=== PATIENT | female | born 1940 | race Caucasian/White ===

== ENCOUNTER 2020-06-06 21:44 | Inpatient (IN) | payer OTHER ==
[2020-06-06] MEDS ORDERED: cefTRIAXone SODIUM 1 GM in SODIUM CHL 0.9% 50ML MIN-BAG+ 50 ML IVPB ONE (22:03)
[2020-06-06] MEDS ORDERED: DEXAMETHASONE INJ 4 MG/ML VIAL IV ONE (22:03)
[2020-06-06] MEDS ORDERED: REMDESIVIR 200 MG in SODIUM CHLORIDE 0.9% 250ML 250 ML IVPB ONE (22:03)
[2020-06-06] MEDS ORDERED: IPRATROPIUM/ALBUTEROL 3 ML VIAL NEB ONE (22:05)
--- NOTE | 2020-06-06 22:48 | CT ---
EXAM DESCRIPTION: CT of the head without contrast CLINICAL HISTORY: ams on eliquis COMPARISON: None available TECHNIQUE: Axial CT of the head obtained from the skull apex to the skull base without contrast. Motion artifact on all imaging. FINDINGS: No acute intracranial hemorrhage identified. No mass, mass effect, shift of the midline, abnormal extra-axial fluid collection or CT evidence of acute ischemic change identified. The ventricular system and sulcal spaces are mildly enlarged compatible with mild cerebral atrophy. Scattered areas of hypodensity throughout the supratentorial white matter are nonspecific and may be related to chronic small vessel ischemic change. Focal area of encephalomalacia in the right occipital lobe compatible with remote infarction. The visualized paranasal sinuses and mastoid air cells are well aerated. No skull fracture identified. Visualized orbits and globes are unremarkable. Atherosclerotic calcification of the intracranial internal carotid arteries. IMPRESSION: 1. No acute intracranial abnormality by CT criteria. This exam was performed according to our departmental dose-optimization program, which includes automated exposure control, adjustment of the mA and/or kV according to patient size and/or use of iterative reconstruction technique. Electronically signed by: Gerald Moe 06/06/2020 10:46 PM [facility]
[2020-06-06] MEDS ORDERED: REMDESIVIR IV 100 MG VIAL ONE (22:57)
[2020-06-06] MEDS ORDERED: diphenhydrAMINE HCL 50 MG/ML VIAL IV ONE (22:59)
--- NOTE | 2020-06-06 23:10 | ED.PDOC ---
History of Present Illness - General Chief Complaint: Respiratory Problem Stated Complaint: COVD+, wheezing, agitation, altered mental status Time Seen by Provider: 06/06/20 21:53 Source: patient Exam Limitations: no limitations - History of Present Illness Initial Comments: The patient is an 80-year-old female presented emergency room from the only hospital secondary to coronavirus pneumonia. The patient does have significant delirium. She is agitated. She has coarse breath sounds. She does have advanced COPD. She does require oxygen for hypoxia. Pupils are dilated, likely due to breathing treatment at previous hospital. The patient is coronavirus positive. She does move all extremities. She does have some bruising to the extremities. She does have known atrial fibrillation and congestive heart failure. The patient is very thin and frail. She did receive Ativan in route secondary to agitation. No medication allergies are listed on her transfer paperwork and no contacts are available upon arrival for further information. Therefore the patient was started on her routine coronavirus admission medications including azithromycin, Rocephin, dexamethasone and remdesivir along with breathing treatments for her COPD. About an hour after arrival, the patient's family picked up the telephone. They report that she has a allergy to cephalosporins i.e. specifically Keflex. We have seen no reaction to this point to the Rocephin however she did receive steroids prior. She is receiving Benadryl as well, as much to help prevent any reaction and has developed the patient sleep. Additional information obtained from the family member is that the patient has not slept in the last 3 days. She has had episodes of sustained insomnia in the past followed by episodes of confusion. Patient has severe anxiety and depression and based on this information she very well may have undiagnosed bipolar disorder. Family members deny significant alcohol or drug use. The patient does smoke and have COPD. She does take Eliquis as a blood thinner. She also takes Valium on an as-needed basis at 5 mg. Timing/Duration: other - Confusion for the last 12 hours anyway. Severity: severe Allergies/Adverse Reactions: Allergies Cephalexin Allergy (Verified 06/06/20 22:23) Pineapple Allergy (Verified 06/06/20 22:23) Home Medications: Ambulatory Orders Apixaban [Eliquis] 5 mg PO BID 06/06/20 Buspirone HCl [Buspirone Hydrochloride] 5 mg PO BID 06/06/20 Diltiazem HCl 60 mg PO BID 06/06/20 Ipratropium/Albuterol [Duoneb] 3 ml NEB QID 06/06/20 Lisinopril 20 mg PO DAILY 06/06/20 Montelukast [Singulair] 10 mg PO DAILY 06/06/20 Prednisone 5 mg PO DAILY 06/06/20 Sodium Chloride 1 gm PO BID 06/06/20 Spironolactone 25 mg PO DAILY 06/06/20 Review of Systems - Review of Systems Review of Systems: 06/06/20 23:10 The patient is unable to give a review of systems. Past Medical History (General) - Patient Medical History Hx of COPD: Yes Hx Congestive Heart Failure: Yes Hx Hypertension: Yes Hx Cancer: Yes - non-hodgkin's, 12yrs ago Surgical History: appendectomy - Vaccination History Hx Tetanus, Diphtheria Vaccination: - unk Hx Influenza Vaccination: Yes - unk Hx Pneumococcal Vaccination: Yes - unk - Social History Hx Tobacco Use: Yes Hx Alcohol Use: - unk Hx Depression: Yes Family Medical History - Family History Mother Family History: Unknown Physical Exam - Physical Exam General Appearance: Emaciated, Frail, Ill Appearing, Other - Agitated and confused Eye Exam: bilateral normal - Pupils are dilated bilaterally. Ears, Nose, Throat: normal pharynx Neck: full range of motion, supple Respiratory: respiratory distress - Mild, accessory muscle use, rales, rhonchi, wheezing Cardiovascular/Chest: normal peripheral pulses, no edema, tachycardia, irregularly irregular Peripheral Pulses: radial,right: 2+, radial,left: 2+ Gastrointestinal/Abdominal: non tender, soft Rectal Exam: deferred Extremity: normal range of motion, no pedal edema, normal capillary refill Neurologic: cvicu rn II-XII nml as tested - As can be tested in an uncooperative exam, no motor/sensory deficits - Better apparent and uncooperative exam, disoriented x 3 Skin Exam: other - Bruising consistent with thin skin and Eliquis Comments: Vital Signs - 24 hr 06/06/20 06/06/20 06/06/20 21:54 22:02 23:01 Temperature 97.3 F L Pulse Rate [ 66 66 97 H left] Respiratory 20 20 20 Rate Blood Pressure 148/94 118/82 [Left Arm] O2 Sat by Pulse 93 L 94 L Oximetry Progress - Progress Progress: 12/22/20 23:28 The patient is a 80-year-old female presented emergency room from an outside emergency room secondary to coronavirus pneumonia, COPD exacerbation and altered mental state that may be more related to bipolar disorder than the hypoxia. The patient is correcting well with 2 L nasal cannula. She has received several breathing treatments. She has been started on a azithromycin, dexamethasone, remdesivir and DuoNeb's as well. She did receive a dose of Rocephin before we were able to find out that she has an allergy to Keflex. So far no evidence of any allergic reaction at this point. She did receive a dose of Benadryl as soon as we found out however. This was partially to help prevent any allergic reaction and partially to help the patient sleep. The patient is very thin and cachectic. She does have very advanced COPD. He also has atrial fibrillation and a history of CHF. She does have a mild lactic acidosis. She has not received 1 L only here secondary to body size and history of CHF. I do not believe she has any significant congestive heart failure exacerbation currently however that will need to be monitored closely. The patient's agitation and delirium are currently being m managed with small doses of Ativan. When she becomes agitated she tries to get out of bed, pull out her IV lines and take off her oxygen. She cannot be reasoned with verbally. She is disoriented. She apparently does take Valium on a frequent basis at a fairly large dose. Admit for continued care. jose costa [phone] - Results/Orders Results/Orders: Chest x-ray from the [facility] showed scattered infiltrates. EKG shows occasional PVCs. Atrial fibrillation at 112 bpm. Mild right axis deviation. Poor R wave progression. No definitive ST segment or T wave changes indicative of acute ischemia. Laboratory Tests 06/06/20 06/06/20 06/06/20 22:22 22:22 22:22 WBC 15.8 H RBC 4.24 Hgb 11.4 L Hct 35.1 L MCV 83.0 MCH 26.9 L MCHC 32.4 L RDW 17.0 H Plt Count 516 H MPV 7.6 Absolute Neuts (auto) 14.90 H Absolute Lymphs (auto) 0.60 L Absolute Monos (auto) 0.30 Absolute Eos (auto) 0.00 Absolute Basos (auto) 0.00 Neutrophils % 94.3 H Lymphocytes % 3.6 L Monocytes % 1.9 L Eosinophils % 0.0 L Basophils % 0.2 PT INR PTT (SP) Fibrinogen D-Dimer, Quantitative Sodium 138 Potassium 5.6 H Chloride 101 Carbon Dioxide 21 Anion Gap 21.6 H BUN 31 H Creatinine 1.54 H BUN/Creatinine Ratio 20.1 H Random Glucose 151 H Serum Osmolality 285.1 Lactic Acid Calcium 8.5 Magnesium 1.9 Ferritin 19.7 Total Bilirubin 0.7 AST 96 H ALT 58 Alkaline Phosphatase 89 Ammonia 10 LD Total 242 H Creatine Kinase 66 CK-MB (CK-2) 7.4 H* CK-MB (CK-2) % Not Reportable Troponin I 0.03 C-Reactive Protein 1.3 H B-Natriuretic Peptide 360.0 H* Serum Total Protein 5.9 L Albumin 3.4 Globulin 2.5 Albumin/Globulin Ratio 1.4 TSH 2.14 06/06/20 06/06/20 22:22 22:22 WBC RBC Hgb Hct MCV MCH MCHC RDW Plt Count MPV Absolute Neuts (auto) Absolute Lymphs (auto) Absolute Monos (auto) Absolute Eos (auto) Absolute Basos (auto) Neutrophils % Lymphocytes % Monocytes % Eosinophils % Basophils % PT 10.6 INR 1.07 PTT (SP) 24.5 Fibrinogen 332 D-Dimer, Quantitative 711.0 H* Sodium Potassium Chloride Carbon Dioxide Anion Gap BUN Creatinine BUN/Creatinine Ratio Random Glucose Serum Osmolality Lactic Acid 3.2 H* Calcium Magnesium Ferritin Total Bilirubin AST ALT Alkaline Phosphatase Ammonia LD Total Creatine Kinase CK-MB (CK-2) CK-MB (CK-2) % Troponin I C-Reactive Protein B-Natriuretic Peptide Serum Total Protein Albumin Globulin Albumin/Globulin Ratio TSH Departure - Departure Clinical Impression: Acute confusional state, Pneumonia due to COVID-19 virus, COPD exacerbation Disposition: Admit Patient Condition: Poor Departure Forms: ED Discharge - Pt. Copy, Patient Portal Self Enrollment Referrals: VIC LADD PA-C [Primary Care Provider] - 1-2 Weeks Home Medications: Ambulatory Orders Apixaban [Eliquis] 5 mg PO BID 06/06/20 Buspirone HCl [Buspirone Hydrochloride] 5 mg PO BID 06/06/20 Diltiazem HCl 60 mg PO BID 06/06/20 Ipratropium/Albuterol [Duoneb] 3 ml NEB QID 06/06/20 Lisinopril 20 mg PO DAILY 06/06/20 Montelukast [Singulair] 10 mg PO DAILY 06/06/20 Prednisone 5 mg PO DAILY 06/06/20 Sodium Chloride 1 gm PO BID 06/06/20 Spironolactone 25 mg PO DAILY 06/06/20 Decision To Admit - Decistion To Admit Decision to Admit Reason: Medical Nature Decision to Admit Date: 06/06/20 Decision to Admit Time: 23:33
--- NOTE | 2020-06-06 23:17 | RAD ---
EXAM DESCRIPTION: Chest,1 View 06/06/2020 11:14 PM INFORMATION ASSURANCE MANAGER CLINICAL HISTORY: 80 years, Female, sob, covid, copd COMPARISON: None. FINDINGS: Single view of the chest was obtained portable. No prior films are available for comparison. There is hyperinflation. The heart is prominent. There is minimal intimal aortic arch calcification. Costophrenic angles are sharp. Minimal reticulonodular changes are noted within the upper lobe, perhaps suggesting minimal bronchial thickening. No areas of consolidation or masses are seen. The rest of the soft tissue and bony structures demonstrate to be unremarkable. IMPRESSION: COPD. CARDIOMEGALY. NO ACUTE CARDIOPULMONARY DISEASE SEEN. Electronically signed by: Christoph Wasserman MD 06/06/2020 11:15 PM INFORMATION ASSURANCE MANAGER
--- NOTE | 2020-06-07 01:27 | HP ---
SUPERVISING PHYSICIAN: Jackson Coughlin MD CHIEF COMPLAINT: Shortness of breath and altered mental status. HISTORY OF PRESENT ILLNESS: This is an 80-year-old female patient who was seen at the [facility]. She tested positive for COVID. She also had altered mental status. She has a significant history of oxygen dependence, chronic obstructive pulmonary disease as well as severe depression, anxiety and undiagnosed bipolar disorder. According to her daughter, she has these bouts of insomnia for 3 to 4 days and increased anxiety and agitation about every 2 to 3 months. The daughter feels like she most likely has some sort of bipolar disorder. She also smokes a pack of cigarettes daily. She was sent from the other facility for evaluation and treatment. In the Emergency Room, her saturations were in the low 90s. With her any exertion or agitation, her saturations drop to 87 to 88%. When she was quiet on oxygen, they were in the low 90s. She did receive several doses of Ativan due to her uncooperativeness as well as trying to pull her oxygen off, trying to pull IVs out and generally combative. She was given Remdesivir, azithromycin, Rocephin, Decadron in the Emergency Room. It was later found after her family answered the phone that she had an unknown allergy to Keflex. There was no adverse or allergic reaction noted after the infusion of the Rocephin although she was given some IV Benadryl prophylactically. Her initial vital signs in the ER were temperature 97.3, heart rate 94 to 110 with blood pressure 148/94, respiratory rate 24, O2 saturation when quiet at 93%. When she was agitated, it was down to 87-88%. Labs were done and her WBCs 15,800, hemoglobin 11.4, hematocrit 35.1. She did have a left shift on differential. D-dimer was 711. Sodium 138, potassium 5.6, chloride 101, carbon dioxide 21, BUN 31, creatinine 1.54, glucose 151, lactic acid 3.2, calcium 8.5, magnesium 1.9, ferritin 19.7, AST 96, LD 242, CK-MB 7.4, C-reactive protein 1.3, BNP 360, ammonia 10. Blood cultures were drawn. Her chest x-ray showed COPD, cardiomegaly and no acute cardiopulmonary disease seen. Her head CT showed no acute intracranial abnormality by CT criteria. She was admitted to the hospital in stable condition. Past medical history and review of systems were difficult to obtain due to the patient's mental status and combativeness. Most information was obtained from her daughter via telephone. PAST MEDICAL HISTORY: 1. Chronic obstructive pulmonary disease. 2. Congestive heart failure of unknown etiology. 3. Hypertension. 4. Atrial fibrillation. 5. Anxiety and depression. 6. Questionable chronic kidney insufficiency as she is on salt tablets routinely. 7. Non-Hodgkin lymphoma approximately 12 years ago. PAST SURGICAL HISTORY: 1. Appendectomy. 2. x2. OUTPATIENT MEDICATIONS: Per the EMR and awaiting verification. ALLERGIES: CEPHALEXIN AND PINEAPPLE. According to her daughter, she does not know what reaction she has to cephalexin. FAMILY HISTORY: Noncontributory. SOCIAL HISTORY: She lives with her daughter and they have home health as well as sitters that sit with her. She lives in [place] although her daughter does live in [place]. She smokes about one pack of cigarettes daily and has for many years. It is unknown whether she uses alcohol or illicit drugs. REVIEW OF SYSTEMS: Unable to be obtained due to the patient's mental status. PHYSICAL EXAMINATION: VITAL SIGNS: Temperature 97.6, heart rate 104, blood pressure 133/66, respiratory rate 16, O2 saturation 95% at rest on 2 liters nasal cannula. GENERAL: This is an 80-year-old cachectic female who frequently gets agitated, but she is slightly sedated now and is calm. HEENT: Pupils are equal and reactive bilaterally. Atraumatic. Oropharynx is clear. NECK: Supple with full range of motion. RESPIRATORY: She is mildly tachypneic, especially when she becomes agitated. Lungs sounds show rales and rhonchi with some expiratory wheezing throughout all lung ayon. CARDIOVASCULAR: Tachycardic rate and irregular rhythm. Atrial fibrillation on the crayon sorting machine feeder. GASTROINTESTINAL: Abdomen is soft, nondistended, nontender. Bowel sounds are positive. NEUROLOGIC: She is uncooperative and will not answer any questions. At this time, she is slightly sedated and calm. SKIN: There is bruising over the entire body with very thin skin. She is on Eliquis routinely. LABORATORY: Followup labs show WBCs 16,200, hemoglobin 10.2, hematocrit 33.3. She continues to have left shift on differential. D-dimer 438. Sodium 142, potassium 5.2, chloride 108, carbon dioxide 22, BUN 32, creatinine 1.55. Lactic acid 1, calcium 7.9, magnesium 2, AST 48, C-reactive protein 1.6. BNP 583. IMPRESSION: 1. COVID-19 pneumonitis with developing pneumonia, most likely community acquired. 2. Sepsis secondary to #1. Her admitting heart rate was in the 100s, respiratory rate 24, lactic acid 3.2, WBCs 15,800 that went up to over 16,000. 3. Chronic obstructive pulmonary disease with acute exacerbation complicated by #1. 4. Congestive heart failure of unknown etiology. BNP 583. There are no signs or symptoms of exacerbation. 5. Acute kidney injury. Her creatinine was 1.54. We have no baseline to compared. 6. Hyperkalemia, most likely due to her renal insufficiency. 7. Altered mental status with confusion. 8. Chronic anxiety and depression with possibly undiagnosed bipolar disorder. 9. Tobacco abuse. 10. Anorexia. 11. Atrial fibrillation on Eliquis. PLAN: The patient has been admitted to the hospital. We will continue the routine COVID medications and testing as well as per COVID protocol. She has been given judicious fluids. At this point, she will be on fluids due to her inability to eat at this time. She will have aggressive pulmonary hygiene including albuterol both p.r.n. and scheduled. I have ordered an echocardiogram. We will monitor her chest x-ray as well as fluid levels. We will also get a Witt catheter and run a urinalysis. Hopefully with all of the antibiotics and fluids, her kidney function will improve and her potassium will come down. I have given her some Haldol for now as well as her Ativan and once her mental status has improved, I will try some Seroquel on her. I will order some supplemental nutritional shakes to her diet once she is able to take oral intake. At this point, she is unable to take her Eliquis, so I put her on some Lovenox and she is on the crayon sorting machine feeder. We will monitor her heart rate. I talked at length with the daughter and the patient's wishes are that she is a full code, as she is at this time. I have held on the Rocephin for now. We may need to restart that, but I will see what her urinalysis shows and start her on some coverage for that if needed. #[id number] MTDD
[2020-06-07] MEDS ORDERED: diphenhydrAMINE HCL 50 MG/ML VIAL IV PRN (02:46)
[2020-06-07] MEDS ORDERED: SODIUM CHLORIDE 0.9% (FLUSH) 10 ML SYG IV PRN (08:12)
[2020-06-07] MEDS ORDERED: ONDANSETRON INJ 4 MG/2 ML VIAL IV PRN (08:12)
[2020-06-07] MEDS ORDERED: predniSONE 5 MG TAB PO SCH (09:00)
[2020-06-07] MEDS ORDERED: SPIRONOLACTONE 25 MG TAB PO SCH (09:00)
[2020-06-07] MEDS ORDERED: MONTELUKAST 10 MG TAB PO SCH (09:00)
[2020-06-07] MEDS ORDERED: APIXABAN 5 MG TAB PO SCH (09:00)
[2020-06-07] MEDS ORDERED: AZITHROMYCIN IV 500 MG VIAL IVPB ONE (09:34)
[2020-06-07] MEDS ORDERED: SODIUM CHLORIDE 0.9% 250ML 250 ML ONE ×2 (09:34→19:40)
[2020-06-07] MEDS: SODIUM CHLORIDE 0.9% (FLUSH) 10 ML SYG IV SCH ×2 (09:47→20:33)
[2020-06-07] MEDS: DEXAMETHASONE INJ 4 MG/ML VIAL IV SCH (09:48)
[2020-06-07] MEDS: AZITHROMYCIN IV 500 MG in SODIUM CHLORIDE 0.9% 250ML 250 ML IVPB SCH (09:48)
[2020-06-07] MEDS: IV SET AND CAP CHANGE INJ INJ SCH (09:48)
[2020-06-07] MEDS ORDERED: HALOPERIDOL LACTATE INJ 5 MG/ML VIAL IM PRN (09:53)
[2020-06-07] MEDS: BIFIDOBACTERIUM INFANTIS 4 MG CAP PO SCH (09:56)
[2020-06-07] MEDS: LISINOPRIL 10 MG TAB PO SCH (09:57)
[2020-06-07] MEDS: diltiaZEM HCL TAB 30 MG TAB PO SCH ×2 (09:57→19:05)
[2020-06-07] MEDS: guaiFENesin ER TAB 600 MG TAB PO SCH ×2 (09:57→19:05)
[2020-06-07] MEDS: busPIRone HCL 5 MG TAB PO SCH ×2 (09:57→19:05)
[2020-06-07] MEDS: NON-FORMULARY MEDICATION 1 EA MIS (Sodium Chloride [Sodium Chloride] 1 GM) PO SCH ×2 (09:58→20:34)
[2020-06-07] MEDS ORDERED: ENOXAPARIN SODIUM 40 MG/0.4 ML SYG SUBCU ONE (11:21)
[2020-06-07] MEDS: ENOXAPARIN SODIUM 40 MG/0.4 ML SYG SUBCU SCH (11:39)
[2020-06-07] MEDS: NICOTINE PATCH 14 MG TD SCH (11:39)
[2020-06-07] MEDS: DEX 5% W/NACL 0.45% 1000ML 1,000 ML IVS PRN (11:40)
[2020-06-07] MEDS: ALBUTEROL INHALER 64 PUFF/8GM INH SCH ×3 (12:40→20:30)
[2020-06-07] MEDS: QUEtiapine FUMARATE 25 MG TAB PO SCH (19:05)
[2020-06-07] MEDS ORDERED: QUEtiapine FUMARATE 25 MG TAB ONE (19:05)
[2020-06-07] MEDS ORDERED: REMDESIVIR IV 100 MG VIAL ONE (19:40)
[2020-06-07] MEDS: REMDESIVIR 100 MG in SODIUM CHLORIDE 0.9% 250ML 250 ML IVPB SCH (20:33)
[2020-06-08] MEDS: DEX 5% W/NACL 0.45% 1000ML 1,000 ML IVS PRN ×2 (00:48→12:27)
[2020-06-08] MEDS: ALBUTEROL INHALER 64 PUFF/8GM INH PRN (00:48)
[2020-06-08] MEDS ORDERED: PANTOPRAZOLE SODIUM IV 40 MG VIAL ONE (05:16)
[2020-06-08] MEDS: PANTOPRAZOLE SODIUM IV 40 MG VIAL IV SCH (05:49)
--- NOTE | 2020-06-08 06:33 | RAD ---
EXAM: XR Chest, 1 View CLINICAL HISTORY: covid TECHNIQUE: Frontal view of the chest. COMPARISON: 06/06/2020 FINDINGS: Lungs: There is stable asymmetric interstitial thickening in the right lung and to a lesser degree in the left apex. Pleural space: No pneumothorax. No pleural effusion. Heart: Normal cardiac size and configuration. Mediastinum: No abnormality noted. Bones/joints: No osseous destruction or sclerosis noted. IMPRESSION: Stable right greater than left interstitial thickening which can be seen with covid pneumonia. Electronically signed by: Kim Coronado MD 06/08/2020 6:31 AM [facility]
[2020-06-08] MEDS: BIFIDOBACTERIUM INFANTIS 4 MG CAP PO SCH (08:07)
[2020-06-08] MEDS: diltiaZEM HCL TAB 30 MG TAB PO SCH ×2 (08:07→20:08)
[2020-06-08] MEDS: guaiFENesin ER TAB 600 MG TAB PO SCH ×2 (08:07→19:44)
[2020-06-08] MEDS: NICOTINE PATCH 14 MG TD SCH (08:07)
[2020-06-08] MEDS: QUEtiapine FUMARATE 25 MG TAB PO SCH ×2 (08:07→19:43)
[2020-06-08] MEDS: LISINOPRIL 10 MG TAB PO SCH (08:07)
[2020-06-08] MEDS: busPIRone HCL 5 MG TAB PO SCH ×2 (08:07→19:43)
[2020-06-08] MEDS: AZITHROMYCIN IV 500 MG in SODIUM CHLORIDE 0.9% 250ML 250 ML IVPB SCH (08:08)
[2020-06-08] MEDS: DEXAMETHASONE INJ 4 MG/ML VIAL IV SCH (08:08)
[2020-06-08] MEDS: ALBUTEROL INHALER 64 PUFF/8GM INH SCH ×4 (08:15→20:30)
[2020-06-08] MEDS: NON-FORMULARY MEDICATION 1 EA MIS (Sodium Chloride [Sodium Chloride] 1 GM) PO SCH ×2 (09:21→21:26)
[2020-06-08] MEDS: SODIUM CHLORIDE 0.9% (FLUSH) 10 ML SYG IV SCH ×2 (09:21→19:44)
[2020-06-08] MEDS: ENOXAPARIN SODIUM 40 MG/0.4 ML SYG SUBCU SCH (11:15)
[2020-06-08] MEDS ORDERED: IPRATROPIUM/ALBUTEROL 3 ML VIAL NEB ONE (12:14)
[2020-06-08] MEDS: FLUMAZENIL 0.1 MG/ML VIAL IV SCH ×5 (14:54→16:03)
[2020-06-08] MEDS: REMDESIVIR 100 MG in SODIUM CHLORIDE 0.9% 250ML 250 ML IVPB SCH (20:08)
[2020-06-08] MEDS ORDERED: QUEtiapine FUMARATE 25 MG TAB ONE (20:16)
[2020-06-08] MEDS ORDERED: QUEtiapine FUMARATE 25 MG TAB PO ONE (20:30)
[2020-06-08] MEDS: IPRATROPIUM/ALBUTEROL 3 ML VIAL NEB SCH (20:30)
[2020-06-09] MEDS: DEX 5% W/NACL 0.45% 1000ML 1,000 ML IVS PRN (00:07)
[2020-06-09] MEDS: ALBUTEROL INHALER 64 PUFF/8GM INH PRN (03:15)
[2020-06-09] MEDS: IPRATROPIUM/ALBUTEROL 3 ML VIAL NEB PRN ×2 (03:15→04:00)
[2020-06-09] MEDS: PANTOPRAZOLE SODIUM IV 40 MG VIAL IV SCH (05:30)
[2020-06-09] MEDS: IPRATROPIUM/ALBUTEROL 3 ML VIAL NEB SCH ×2 (07:45→20:05)
[2020-06-09] MEDS: AZITHROMYCIN IV 500 MG in SODIUM CHLORIDE 0.9% 250ML 250 ML IVPB SCH (07:51)
[2020-06-09] MEDS: busPIRone HCL 5 MG TAB PO SCH ×2 (08:03→20:34)
[2020-06-09] MEDS: BIFIDOBACTERIUM INFANTIS 4 MG CAP PO SCH (08:03)
[2020-06-09] MEDS: DEXAMETHASONE INJ 4 MG/ML VIAL IV SCH (08:03)
[2020-06-09] MEDS: NICOTINE PATCH 14 MG TD SCH (08:03)
[2020-06-09] MEDS: guaiFENesin ER TAB 600 MG TAB PO SCH ×2 (08:03→20:33)
[2020-06-09] MEDS: diltiaZEM HCL TAB 30 MG TAB PO SCH ×2 (08:03→20:34)
[2020-06-09] MEDS: SODIUM CHLORIDE 0.9% (FLUSH) 10 ML SYG IV SCH ×2 (08:04→20:36)
[2020-06-09] MEDS: QUEtiapine FUMARATE 25 MG TAB PO SCH ×2 (08:04→20:34)
[2020-06-09] MEDS: LISINOPRIL 10 MG TAB PO SCH (08:04)
[2020-06-09] MEDS: ALBUTEROL INHALER 64 PUFF/8GM INH SCH ×4 (08:06→20:05)
[2020-06-09] MEDS: NON-FORMULARY MEDICATION 1 EA MIS (Sodium Chloride [Sodium Chloride] 1 GM) PO SCH ×2 (10:23→20:37)
[2020-06-09] MEDS: ENOXAPARIN SODIUM 40 MG/0.4 ML SYG SUBCU SCH (10:24)
--- NOTE | 2020-06-09 13:59 | PN ---
SUPERVISING PHYSICIAN: Ced Paz MD DATE: 06/08/2020 SUBJECTIVE: The patient is waking up more this morning. She was able to get some of her oral medications down and answer some simple questions. She still gets confused at times but I am not sure if that is not far from her baseline. Nursing reports there have been no problems other than she still gets very agitated and takes off her oxygen and pulls at her IV lines. OBJECTIVE: VITAL SIGNS: Temperature 97.8, heart rate 91, blood pressure 102/67, respiratory rate 20, O2 saturation 95% on 1 liter nasal cannula. RESPIRATORY: Diminished at the bases. CARDIOVASCULAR: Regular rate and irregular rhythm. At times she is slightly tachycardic, atrial fibrillation on the monitoring manager. NEUROLOGIC: She is awake, responds to some simple questions but is still very agitated and anxious. LABORATORY: WBCs 16,300, hemoglobin 10.2, hematocrit 33.1. She has a left shift on her differential. D-dimer 253. Electrolytes are within normal limits with exception calcium is low at 7.7. Preliminary blood cultures show no growth after 24 hours. Chest x-ray shows stable right greater than left interstitial thickening which can be seen with Covid pneumonia IMPRESSION: 1. COVID-19 pneumonitis with developing pneumonia, most likely community acquired. 2. Sepsis secondary to #1. Her admitting heart rate was in the 100s, respiratory rate 24, lactic acid 3.2, WBCs 15,800 that went up to over 16,000. 3. Chronic obstructive pulmonary disease with acute exacerbation complicated by #1. 4. Congestive heart failure of unknown etiology. BNP 583. There are no signs or symptoms of exacerbation. 5. Acute kidney injury. Her creatinine was 1.54. We have no baseline to compared. 6. Hyperkalemia, most likely due to her renal insufficiency. 7. Altered mental status with confusion. 8. Chronic anxiety and depression with possibly undiagnosed bipolar disorder. 9. Tobacco abuse. 10. Anorexia. 11. Atrial fibrillation on Eliquis. PLAN: We will continue present supportives care. I will continue with the Seroquel and see if that helps her anxiety. She is routinely on Valium so will continue with Ativan for now. I did order a physical therapy evaluation, although I am not sure how much she gets around at home. Her daughter did say she uses the walker to transfer but does not walk much. Hopefully, she will continue to improve clinically. We will continue with the Covid guidelines and will monitor and treat as needed. #[id number] MTDD
--- NOTE | 2020-06-09 19:22 | PN ---
SUPERVISING PHYSICIAN: Ced Paz MD DATE: 06/09/2020 SUBJECTIVE: The patient continues to be quite anxious and agitated but much improved. Yesterday afternoon she had an episode that she became quite lethargic and she was difficult to arouse. An ABG was performed and she was retaining some C02. She had been given Ativan due to her agitation and anxiety. She was given some Romazicon and she woke up and was much more alert, although still confused. Otherwise, nursing has reported no other issues. OBJECTIVE: VITAL SIGNS: Temperature 98.1, heart rate 101, blood pressure 120/67, respiratory rate 20, O2 saturation 96% on 2.5 liters nasal cannula. RESPIRATORY: Diminished throughout but a few scattered rhonchi. CARDIOVASCULAR: Regular rate and irregular rhythm. NEUROLOGIC: She is agitated and confused. She does answer some simple yes/no questions without issues. LABORATORY: Blood gas prior to the Romazicon with a PC02 of 54, P02 of 158, bicarb 24.1, pH 7.257, oxygen saturation 98%, she was on BiPAP through the night and this morning's ABG showed a PC02 of 50, P02 of 137, bicarb 24.5, ABG 7.3, oxygen saturation 98.6. All other labs and films have been reviewed via the EMR. IMPRESSION: 1. COVID-19 pneumonitis with developing pneumonia, most likely community acquired. 2. Sepsis secondary to #1. Her admitting heart rate was in the 100s, respiratory rate 24, lactic acid 3.2, WBCs 15,800 that went up to over 16,000. 3. Chronic obstructive pulmonary disease with acute exacerbation complicated by #1. 4. Congestive heart failure of unknown etiology. BNP 583. There are no signs or symptoms of exacerbation. 5. Acute kidney injury. Her creatinine was 1.54. We have no baseline to compared. 6. Hyperkalemia, most likely due to her renal insufficiency. 7. Altered mental status with confusion. 8. Chronic anxiety and depression with possibly undiagnosed bipolar disorder. 9. Tobacco abuse. 10. Anorexia. 11. Atrial fibrillation on Eliquis. PLAN: We will continue present supportives care including Covid-19 guidelines, ordered lab and chest x-ray for in the morning. Her Ativan has not been discontinued but nursing is aware to use it very minimally as she is on Valium routinely at home. Will increase her Seroquel at night to 50. Hopefully, she will improve over the next few days where we can discharge her back home. #[id number] [facility]
[2020-06-09] MEDS: REMDESIVIR 100 MG in SODIUM CHLORIDE 0.9% 250ML 250 ML IVPB SCH (20:36)
[2020-06-10] MEDS: DEX 5% W/NACL 0.45% 1000ML 1,000 ML IVS PRN (00:37)
[2020-06-10] MEDS: PANTOPRAZOLE SODIUM IV 40 MG VIAL IV SCH (06:29)
--- NOTE | 2020-06-10 06:54 | RAD ---
PROCEDURE:XR CHEST 1 VIEW HISTORY:covid COMPARISON: June 08, 2020 FINDINGS: The heart appears unremarkable. There is minimal diffuse interstitial thickening seen to be present unchanged from the prior exam. There is no effusion or pneumothorax. There is no alveolar consolidation. There are no acute bony or soft tissue abnormalities. IMPRESSION: Stable chest x-ray. Electronically signed by: Eric Frias MD 06/10/2020 6:52 AM [facility]
[2020-06-10] MEDS: IPRATROPIUM/ALBUTEROL 3 ML VIAL NEB SCH ×3 (08:30→20:12)
[2020-06-10] MEDS: ALBUTEROL INHALER 64 PUFF/8GM INH SCH ×4 (08:30→20:12)
[2020-06-10] MEDS: AZITHROMYCIN IV 500 MG in SODIUM CHLORIDE 0.9% 250ML 250 ML IVPB SCH (09:09)
[2020-06-10] MEDS: QUEtiapine FUMARATE 25 MG TAB PO SCH ×2 (09:25→21:13)
[2020-06-10] MEDS: IV SET AND CAP CHANGE INJ INJ SCH (09:26)
[2020-06-10] MEDS: BIFIDOBACTERIUM INFANTIS 4 MG CAP PO SCH (09:26)
[2020-06-10] MEDS: SODIUM CHLORIDE 0.9% (FLUSH) 10 ML SYG IV SCH ×2 (09:26→21:13)
[2020-06-10] MEDS: diltiaZEM HCL TAB 30 MG TAB PO SCH ×2 (09:27→21:12)
[2020-06-10] MEDS: busPIRone HCL 5 MG TAB PO SCH ×2 (09:27→21:12)
[2020-06-10] MEDS: DEXAMETHASONE INJ 4 MG/ML VIAL IV SCH (09:27)
[2020-06-10] MEDS: guaiFENesin ER TAB 600 MG TAB PO SCH ×2 (09:28→21:12)
[2020-06-10] MEDS: NICOTINE PATCH 14 MG TD SCH (09:28)
[2020-06-10] MEDS: ENOXAPARIN SODIUM 40 MG/0.4 ML SYG SUBCU SCH (09:29)
[2020-06-10] MEDS: NON-FORMULARY MEDICATION 1 EA MIS (Sodium Chloride [Sodium Chloride] 1 GM) PO SCH ×2 (09:29→21:13)
[2020-06-10] MEDS: LISINOPRIL 10 MG TAB PO SCH (09:29)
[2020-06-10] MEDS: MORPHINE SULFATE INJ 10 MG/ML VIAL IV PRN ×2 (12:47→16:43)
[2020-06-10] MEDS ORDERED: levoFLOXacin 500MG IV 500 MG in PREMIX BAG 1 BAG IVPB ONE (13:00)
[2020-06-10] MEDS: BUDESONIDE NEBS 0.5 MG/2 ML INH NEB SCH ×2 (13:30→20:12)
[2020-06-10] MEDS: IPRATROPIUM/ALBUTEROL 3 ML VIAL NEB PRN (13:30)
[2020-06-10] MEDS ORDERED: levoFLOXacin 500MG IV 100 ML IVPB ONE (15:15)
--- NOTE | 2020-06-10 17:07 | PN ---
SUPERVISING PHYSICIAN: Ced Paz MD DATE: 06/10/2020 SUBJECTIVE: The patient is showing some signs of increasing need for oxygen, report was she was able to get off BiPAP yesterday during the day but was on it all night last night and apparently is having little issues with getting off of it this morning. Her daughter did come visit with her. We discussed her DNR status which she is going to talk to her brother at this point. Again, I reemphasized that the patient is endstage chronic obstructive pulmonary disease and we will further assess her DNR status as soon as that is available. The patient is requiring some Ativan and morphine for comfort and agitation but she does well with that combination. OBJECTIVE: VITAL SIGNS: Oxygen saturation showing 99% on BiPAP at 30%. She is able to get off BiPAP for brief periods, mostly been around 99% at rest but becomes quite agitated and actually while I was in there she was hollering for help once she got off of BiPAP. Her temperature 98, pulse 101, respirations 18. GENERAL: The patient looks to be resting comfortably but is getting slightly agitated, actually coming off BiPAP. She is obviously confused but her daughter says that is her baseline level at times. CHEST: Lung sounds remain diminished throughout with some intermittent rhonchi and some obvious expiratory wheezing. CARDIOVASCULAR: Slightly irregular rate and rhythm. ABDOMEN: Soft, no obvious tenderness noted on palpation. Bowel sounds are positive. EXTREMITIES: No cyanosis, clubbing. NEUROLOGIC: She remains agitated and confused but will rest comfortably at times with assistance of Ativan and morphine. LABORATORY: White count 16,300, hemoglobin 10.4, hematocrit 33.1, platelet count 444,000. Differential does show a left shift. Coagulation studies today show PT normal as well as fibrinogen and D-dimer, was at 253 as compared to admission of 711. Chemistries showing normal electrolytes. Creatinine has normalized to 1.27, magnesium normal at 1.9, calcium 7.7 corrected to 8.0 with albumin level of 3.0. Liver functions all within normal limits. MICROBIOLOGY: Blood cultures remain negative at 3 days. RADIOLOGY: Chest x-ray per radiology interpretation this morning shows stable chest. IMPRESSION: 1. COVID-19 pneumonitis with developing pneumonia, most likely community acquired. 2. Sepsis secondary to #1. Her admitting heart rate was in the 100s, respiratory rate 24, lactic acid 3.2, WBCs 15,800 that went up to over 16,000. 3. Chronic obstructive pulmonary disease with acute exacerbation complicated by #1. 4. Congestive heart failure of unknown etiology. BNP 583. There are no signs or symptoms of exacerbation. 5. Acute kidney injury. Her creatinine was 1.54. We have no baseline to compared. 6. Hyperkalemia, most likely due to her renal insufficiency. 7. Altered mental status with confusion. 8. Chronic anxiety and depression with possibly undiagnosed bipolar disorder. 9. Tobacco abuse. 10. Anorexia. 11. Atrial fibrillation on Eliquis. PLAN: We will continue with current plan of care at this point with some modification. I will go ahead and put her on some Levaquin given the fact that she is having a persistent high white count, I know she is on Decadron but she certainly has endstage chronic obstructive pulmonary disease. We will work to titrate her off BiPAP as possible. I have also requested that we go ahead and put her on Pulmicort 1 mg b.i.d. as well as nebulizer treatments utilizing BiPAP. I have again discussed at length the patient's prognosis and DNR status with the daughter who is going to talk with her brother and they will come to a conclusion and let us know as soon as possible. I did reemphasize that she is endstage COPD and will likely not survive on a vent, if she does she will likely not ever come off for any length of time. I even discussed the possibility that she may benefit at some point in the near future going to hospice care given her advanced chronic obstructive pulmonary disease. We will utilize morphine and Ativan as needed to help with agitation and to keep her comfortable. I went ahead and added Lovenox, again for the worsening white count, giving 500 mg and will dose it renally for 250. We will continue with dose of azithromycin to complete the 5-day course. Will change her Decadron to Solu-Medrol 40 every 6 hours as I think this is more appropriate to her advanced COPD. She continues on Remdesivir and she is on Seroquel as well. She still requires Witt due to requiring NIV with Bipap and her inability to ambulate to bedside commode. When she is able to tolerate transferring to bedside commode without and obvious distress the Witt will be removed.I would anticipate her length of stay to be at least a couple more days if not more and I think she will probably benefit form hospice at some point if she is able to go home but again will await her DNR status. She remains a full code at this point. I will visit with the family again tomorrow. Until we can transition patient to outpatient management, we will continue to monitor and treat as needed. #[id number] [facility]
[2020-06-10] MEDS: REMDESIVIR 100 MG in SODIUM CHLORIDE 0.9% 250ML 250 ML IVPB SCH (20:59)
[2020-06-10] MEDS: methylPREDNISolone SODIUM SUC 40 MG/ML VIAL IV SCH ×2 (21:00→23:51)
[2020-06-11] MEDS: methylPREDNISolone SODIUM SUC 40 MG/ML VIAL IV SCH ×3 (05:49→17:41)
[2020-06-11] MEDS: PANTOPRAZOLE SODIUM IV 40 MG VIAL IV SCH (05:49)
[2020-06-11] MEDS ORDERED: IPRATROPIUM/ALBUTEROL 3 ML VIAL NEB ONE ×2 (08:56→21:06)
[2020-06-11] MEDS ORDERED: BUDESONIDE NEBS 0.5 MG/2 ML INH NEB ONE ×2 (08:56→21:05)
[2020-06-11] MEDS: AZITHROMYCIN IV 500 MG in SODIUM CHLORIDE 0.9% 250ML 250 ML IVPB SCH (09:00)
[2020-06-11] MEDS: IPRATROPIUM/ALBUTEROL 3 ML VIAL NEB SCH ×3 (09:30→21:15)
[2020-06-11] MEDS: BUDESONIDE NEBS 0.5 MG/2 ML INH NEB SCH ×2 (09:30→21:15)
[2020-06-11] MEDS: ALBUTEROL INHALER 64 PUFF/8GM INH SCH ×3 (10:35→20:15)
[2020-06-11] MEDS: BIFIDOBACTERIUM INFANTIS 4 MG CAP PO SCH (11:09)
[2020-06-11] MEDS: busPIRone HCL 5 MG TAB PO SCH ×2 (11:10→20:26)
[2020-06-11] MEDS: diltiaZEM HCL TAB 30 MG TAB PO SCH ×2 (12:22→20:26)
[2020-06-11] MEDS: LISINOPRIL 10 MG TAB PO SCH (12:22)
[2020-06-11] MEDS: guaiFENesin ER TAB 600 MG TAB PO SCH ×2 (12:22→20:25)
[2020-06-11] MEDS: SODIUM CHLORIDE 0.9% (FLUSH) 10 ML SYG IV SCH ×2 (12:23→20:27)
[2020-06-11] MEDS ORDERED: QUEtiapine FUMARATE 25 MG TAB ONE ×2 (12:26→19:52)
[2020-06-11] MEDS ORDERED: NICOTINE PATCH 14 MG TD ONE (12:26)
[2020-06-11] MEDS: QUEtiapine FUMARATE 25 MG TAB PO SCH ×2 (12:52→20:26)
[2020-06-11] MEDS: ENOXAPARIN SODIUM 40 MG/0.4 ML SYG SUBCU SCH (12:52)
[2020-06-11] MEDS: NICOTINE PATCH 14 MG TD SCH (12:52)
[2020-06-11] MEDS ORDERED: levoFLOXacin 250MG IV 50 ML IVPB ONE (13:12)
[2020-06-11] MEDS ORDERED: methylPREDNISolone SODIUM SUC 40 MG/ML VIAL ONE ×2 (13:12→17:29)
[2020-06-11] MEDS: levoFLOXacin 250MG IV 250 MG in PREMIX BAG 1 BAG IVPB SCH (13:47)
[2020-06-11] MEDS: NON-FORMULARY MEDICATION 1 EA MIS (Sodium Chloride [Sodium Chloride] 1 GM) PO SCH ×2 (14:44→20:29)
--- NOTE | 2020-06-11 15:41 | PN ---
SUPERVISING PHYSICIAN: Ced Paz MD DATE: 06/11/2020 SUBJECTIVE: The patient is still requiring noninvasive ventilation in the form of BiPAP because she is at 30% FI02. She is actually able to tolerate some short periods of time on high flow nasal cannula. This morning, it does look like she is much more alert. She is not as restless. OBJECTIVE: VITAL SIGNS: Heart rate showing atrial fibrillation on the monitor ranging from 80s to 100s. Blood pressure 119/65. She is showing 30% FI02 on BiPAP, oxygen saturation 100%. GENERAL: The patient looks to be resting comfortably, when she comes off BiPAP she is actually able to talk compared to yesterday. She is not as restless. CHEST: Lung sounds still notably diminished throughout with decreasing wheezing but still has some wheezing noted in the upper bases. CARDIOVASCULAR: Regular rate and rhythm with right ventricular pressure noted on the bedside monitor. ABDOMEN: Soft, non-tender. Bowel sounds are positive. EXTREMITIES: Without edema. NEUROLOGIC: She is confused but will answer basic simple questions once off BiPAP which is an improvement from yesterday. No obvious motor or sensory deficits noted. LABORATORY: CBC was pending. Her BNP shows that her anion gap is again elevated at 25.2 but bicarb is 15. ABG last night showed on BiPAP that she was mildly acidotic at 7.32 with PC02 of 49, P02 of 90 with oxygen saturation 96% on 30% with bicarb showing at 25.3. Calcium 8.4. Coagulation studies, again CBC was not completed, had some difficulties getting good samples. Review of her labs on 06/08 showed her C-reactive protein had normalized. RADIOLOGY: Repeat chest x-ray was not done today. Review of chest x-ray from yesterday did show it looks to be stable with no obvious alveolar consolidation or effusion or pneumothorax. 12-lead EKG showed atrial fibrillation with RVR at 130. IMPRESSION: 1. COVID-19 pneumonitis. 2. Chronic obstructive pulmonary disease exacerbation secondary to #1 and community acquired pneumonia. 3. Sepsis secondary to #1 and #2 showing some slight improvement. 4. Congestive heart failure etiology unknown with no obvious signs of exacerbation. 5. Hyperkalemia, probably due to difficulty with venous sticks. with renal function showing to be stable. 6. Altered mental status with continued confusion exacerbated by Ativan and morphine. 7. Chronic atrial fibrillation with RVR due to poor medical compliance with not taking oral medications. 8. Chronic anxiety and depression with concerns for possible bipolar disorder. 9. Chronic tobacco abuse. 10. Anorexia. PLAN: We will continue with current plan at this point with the Levaquin and azithromycin. She does remain on Lovenox, Solu-Medrol and Pulmicort. If she is not able to take her oral medications, specifically her Cardizem, we may need to consider some IV Cardizem and possibly an IV infusion to get her rate control. At this point, she is tolerating RVR but certainly we will need to get this under better control. Hopefully, when she is a little more awake she will be able to take her oral medications. We will again try to discuss her code status with her family. I have not heard from them this morning but will attempt to see if we can clarify their wishes. Again, she remains on aggressive pulmonary hygiene with Duoneb treatments and Pulmicort. We are working to get her off BiPAP as she tolerates the high flow. We will continue with her Witt catheter until she is able to tolerate transitioning from the bed to the bedside commode as she does become quite dyspneic with any exertional effort. We will need to repeat her labs in the morning. At this point we will hold off and try to use multiple draws as her labs I think are fairly stable and she is showing some slight clinical improvement but again, her prophylaxis is pretty poor as she has endstage chronic obstructive pulmonary disease. Until we can transition patient to outpatient management, we will continue to monitor and treat as needed. #[id number] [facility]
[2020-06-12] MEDS ORDERED: methylPREDNISolone SODIUM SUC 40 MG/ML VIAL ONE ×2 (00:19→05:19)
[2020-06-12] MEDS: methylPREDNISolone SODIUM SUC 40 MG/ML VIAL IV SCH ×4 (00:21→18:34)
[2020-06-12] MEDS: PANTOPRAZOLE SODIUM IV 40 MG VIAL IV SCH (05:33)
[2020-06-12] MEDS ORDERED: IPRATROPIUM/ALBUTEROL 3 ML VIAL NEB ONE (07:26)
[2020-06-12] MEDS ORDERED: BUDESONIDE NEBS 0.5 MG/2 ML INH NEB ONE (07:27)
[2020-06-12] MEDS ORDERED: QUEtiapine FUMARATE 25 MG TAB ONE (07:40)
[2020-06-12] MEDS: guaiFENesin ER TAB 600 MG TAB PO SCH ×2 (09:04→19:50)
[2020-06-12] MEDS: SODIUM CHLORIDE 0.9% (FLUSH) 10 ML SYG IV SCH ×2 (09:05→19:51)
[2020-06-12] MEDS: BIFIDOBACTERIUM INFANTIS 4 MG CAP PO SCH (09:05)
[2020-06-12] MEDS: LISINOPRIL 10 MG TAB PO SCH (09:05)
[2020-06-12] MEDS: NICOTINE PATCH 14 MG TD SCH (09:05)
[2020-06-12] MEDS: diltiaZEM HCL TAB 30 MG TAB PO SCH ×2 (09:05→19:50)
[2020-06-12] MEDS: busPIRone HCL 5 MG TAB PO SCH ×2 (09:05→19:50)
[2020-06-12] MEDS: QUEtiapine FUMARATE 25 MG TAB PO SCH ×2 (09:05→19:50)
[2020-06-12] MEDS: AZITHROMYCIN IV 500 MG in SODIUM CHLORIDE 0.9% 250ML 250 ML IVPB SCH (09:06)
[2020-06-12] MEDS: NON-FORMULARY MEDICATION 1 EA MIS (Sodium Chloride [Sodium Chloride] 1 GM) PO SCH ×2 (09:06→20:58)
[2020-06-12] MEDS: ALBUTEROL INHALER 64 PUFF/8GM INH SCH ×4 (09:17→21:13)
[2020-06-12] MEDS: BUDESONIDE NEBS 0.5 MG/2 ML INH NEB SCH ×2 (09:17→21:02)
[2020-06-12] MEDS: IPRATROPIUM/ALBUTEROL 3 ML VIAL NEB SCH ×4 (09:17→21:02)
[2020-06-12] MEDS: ENOXAPARIN SODIUM 40 MG/0.4 ML SYG SUBCU SCH (11:32)
[2020-06-12] MEDS: levoFLOXacin 250MG IV 250 MG in PREMIX BAG 1 BAG IVPB SCH (11:32)
--- NOTE | 2020-06-12 15:30 | PN ---
SUPERVISING PHYSICIAN: Cornel Alfaro MD DATE: 06/12/20 SUBJECTIVE: The patient is much more interactive this morning. She is actually taking her oral medications. She is actually able to drink. She has been tolerating high flow oxygen. She is not in distress. Her daughter is at her bedside and we discussed changing her code states to DNR as well as plan of care to discharge on hospice hopefully within the next one to two days with arrangements pending. OBJECTIVE: VITAL SIGNS: Temperature 96.5, pulse 110, blood pressure 110/68, respirations 18, saturation 96% on 3 liters nasal cannula at high flow. GENERAL: The patient is actually resting comfortably. She will open her eyes to conversation and interact with her daughter. CHEST: Lung sounds remain diminished, not quite as notable for wheezing today. No rales or rhonchi. CARDIOVASCULAR: Regular rate and rhythm. ABDOMEN: Soft, nontender. Bowel sounds are positive. EXTREMITIES: Without edema. NEUROLOGIC: She is alert and oriented x1. She is much more interactive. No obvious motor or sensory deficits are noted today. LABORATORY: White count 16,400, hemoglobin stable at 10.2, hematocrit 31.6, platelet count 393,000. Differential does continue to show a left shift. D- dimer has normalized to 253. Chemistries show normal electrolytes, normal potassium at 4. Anion gap was normal at 16 with creatinine 1.01. Calcium 8.1. MICROBIOLOGY: Blood cultures remain negative after 5 days. RADIOLOGY: No new radiographic studies today. IMPRESSION: 1. COVID-19 pneumonitis. 2. Chronic obstructive pulmonary disease exacerbation secondary to #1 and community acquired pneumonia. 3. Sepsis secondary to #1 and #2 showing some slight improvement. 4. Congestive heart failure etiology unknown with no obvious signs of exacerbation. 5. Hyperkalemia, probably due to difficulty with venous sticks. with renal function showing to be stable. 6. Altered mental status with continued confusion exacerbated by Ativan and morphine. 7. Chronic atrial fibrillation with episodes of rapid ventricular response due to not taking oral medications, but showing better control with intermittent IV dosing. 8. Chronic anxiety and depression with concerns for possible bipolar disorder. 9. Chronic tobacco abuse. 10. Anorexia. PLAN: We will continue with azithromycin and Levaquin along with Lovenox, Solu- Medrol and Pulmicort. She has actually taken some oral medications including her Cardizem. We will monitor her heart rate closely. We did end up having to give her a couple of doses of IV Cardizem last night to help get her rate better controlled. The family has decided to change her code status to a Do Not Resuscitate. We discussed consultation with hospice with anticipation of discharging home on hospice once she is able to discharge home. We will continue to titrate her oxygen down to her baseline levels at home, which I believe is 2 to 3 liters. We will continue to follow her labs. Until the patient can transition to outpatient management, we will continue to monitor and treat as needed. #[id number] [facility]
[2020-06-13] MEDS: methylPREDNISolone SODIUM SUC 40 MG/ML VIAL IV SCH ×2 (00:35→05:42)
[2020-06-13] MEDS: PANTOPRAZOLE SODIUM IV 40 MG VIAL IV SCH (05:43)
--- NOTE | 2020-06-13 07:40 | RAD ---
EXAM: X-RAY, Chest (1 View) HISTORY: COVID PNA; COPD. COMPARISON: Chest x-ray from 06/10/2020. TECHNIQUE: AP view of the chest. FINDINGS: Lungs: Mild interstitial opacities have mostly resolved in the lung bases. Pleural space: Tiny left pleural effusion. No pneumothorax. Heart: Mildly enlarged. Bones: No acute bone abnormality. IMPRESSION: 1. Mild interstitial opacities have mostly resolved. 2. Tiny left pleural effusion. Electronically signed by: Cesar Treviño MD 06/13/2020 7:39 AM [facility] [[email or web address]]
[2020-06-13] MEDS: IPRATROPIUM/ALBUTEROL 3 ML VIAL NEB SCH ×4 (07:53→21:06)
[2020-06-13] MEDS: ALBUTEROL INHALER 64 PUFF/8GM INH SCH (07:53)
[2020-06-13] MEDS: BUDESONIDE NEBS 0.5 MG/2 ML INH NEB SCH ×2 (07:53→21:06)
[2020-06-13] MEDS: AZITHROMYCIN IV 500 MG in SODIUM CHLORIDE 0.9% 250ML 250 ML IVPB SCH (09:27)
[2020-06-13] MEDS: LISINOPRIL 10 MG TAB PO SCH (09:28)
[2020-06-13] MEDS: guaiFENesin ER TAB 600 MG TAB PO SCH ×2 (09:28→20:24)
[2020-06-13] MEDS: NICOTINE PATCH 14 MG TD SCH (09:28)
[2020-06-13] MEDS: BIFIDOBACTERIUM INFANTIS 4 MG CAP PO SCH (09:28)
[2020-06-13] MEDS: SODIUM CHLORIDE 0.9% (FLUSH) 10 ML SYG IV SCH ×2 (09:29→20:24)
[2020-06-13] MEDS: IV SET AND CAP CHANGE INJ INJ SCH (09:29)
[2020-06-13] MEDS: diltiaZEM HCL TAB 30 MG TAB PO SCH ×2 (09:29→20:24)
[2020-06-13] MEDS: REMOVE OLD PATCH TOP SCH (09:29)
[2020-06-13] MEDS: busPIRone HCL 5 MG TAB PO SCH ×2 (10:56→20:24)
[2020-06-13] MEDS: QUEtiapine FUMARATE 25 MG TAB PO SCH ×2 (10:56→20:24)
[2020-06-13] MEDS: ENOXAPARIN SODIUM 40 MG/0.4 ML SYG SUBCU SCH (10:56)
[2020-06-13] MEDS: levoFLOXacin 250MG IV 250 MG in PREMIX BAG 1 BAG IVPB SCH (15:00)
[2020-06-13] MEDS: NON-FORMULARY MEDICATION 1 EA MIS (Sodium Chloride [Sodium Chloride] 1 GM) PO SCH ×2 (15:00→20:26)
--- NOTE | 2020-06-13 16:32 | PN ---
SUPERVISING PHYSICIAN: Cornel Alfaro MD DATE: 06/13/20 SUBJECTIVE: The patient is much more alert today. She is actually requesting water. She is actually taking her medications. She is improving clinically, but her white count did significantly increase overnight, but she has not had any other setbacks and she is maintaining her O2 saturations on fairly low flow nasal cannula. OBJECTIVE: VITAL SIGNS: Temperature 98, pulse 114, blood pressure 132/72, respirations 22, saturation 97% on 2 liters nasal cannula. GENERAL: The patient is resting comfortably. She is much more interactive today. She is requesting drink and seems to be more alert. CHEST: A little bit improved in regard to aeration, but she still is diminished. I do not hear wheezing. CARDIOVASCULAR: Slightly irregular rate and rhythm, tachycardic on monitor. ABDOMEN: Soft, nontender. Bowel sounds are positive. EXTREMITIES: Without edema. NEUROLOGIC: She is alert and oriented to herself. She does not know her location and time, but again no obvious neuro or motor deficits. LABORATORY: White count did significantly increase overnight to 21,500 with a left shift and 2% bands. Chemistries show normal electrolytes. Creatinine normalized to 1.0 and labs seem to be stable. RADIOLOGY: Chest x-ray this morning per radiologic interpretation shows mild interstitial opacities that have mostly resolved with tiny left pleural effusion. ASSESSMENT: 1. COVID-19 pneumonitis. 2. Chronic obstructive pulmonary disease exacerbation secondary to #1 and community acquired pneumonia, showing improvement with more aggressive treatment. 3. Sepsis secondary to #2 with slight increase in leukocytosis today, probably related to some demargination from heavy steroid administration. No other signs of worsening sepsis. 4. Congestive heart failure, likely diastolic with no obvious signs of exacerbation. 5. Hyperkalemia, resolved. 6. Altered mental status secondary to #1, improving, with some underlying dementia and probably some other psychiatric issues yet to be diagnosed. 7. Chronic atrial fibrillation with much more controlled ventricular rate. 8. Chronic anxiety and depression with concerns for possible bipolar disorder. 9. Chronic tobacco abuse. 10. Anorexia. PLAN: We will continue with Levaquin. I think she has finished her course of azithromycin. She remains on Lovenox. I have decreased her Solu-Medrol to start on p.o. prednisone. She remains on Pulmicort. We will continue to watch her heart rate. We may have to increase her Cardizem, but at this point she seems to be stabilizing. I would think that if she continues to show improvement overnight and if her white count will start improving, we will be able to discharge her to hospice with [facility] as the family has requested. She has been changed to Do Not Resuscitate in regards to her code status. She has been titrated down to low flow nasal cannula and, again, hopefully we will be able to discharge to hospice at home tomorrow. #[id number] [facility]
[2020-06-14] MEDS ORDERED: PANTOPRAZOLE SODIUM TAB 40 MG PO SCH (06:30)
[2020-06-14] MEDS ORDERED: predniSONE 20 MG TAB ONE (07:36)
[2020-06-14] MEDS ORDERED: QUEtiapine FUMARATE 25 MG TAB ONE (07:37)
[2020-06-14] MEDS: BIFIDOBACTERIUM INFANTIS 4 MG CAP PO SCH (07:57)
[2020-06-14] MEDS: busPIRone HCL 5 MG TAB PO SCH (07:57)
[2020-06-14] MEDS: QUEtiapine FUMARATE 25 MG TAB PO SCH (07:57)
[2020-06-14] MEDS: guaiFENesin ER TAB 600 MG TAB PO SCH (07:57)
[2020-06-14] MEDS: LISINOPRIL 10 MG TAB PO SCH (07:57)
[2020-06-14] MEDS: AZITHROMYCIN IV 500 MG in SODIUM CHLORIDE 0.9% 250ML 250 ML IVPB SCH (08:03)
[2020-06-14] MEDS: NICOTINE PATCH 14 MG TD SCH (08:06)
[2020-06-14] MEDS: REMOVE OLD PATCH TOP SCH (08:06)
[2020-06-14] MEDS: diltiaZEM HCL TAB 30 MG TAB PO SCH (08:07)
[2020-06-14] MEDS: SODIUM CHLORIDE 0.9% (FLUSH) 10 ML SYG IV SCH (08:31)
[2020-06-14] MEDS: NON-FORMULARY MEDICATION 1 EA MIS (Sodium Chloride [Sodium Chloride] 1 GM) PO SCH (08:31)
[2020-06-14] MEDS: IPRATROPIUM/ALBUTEROL 3 ML VIAL NEB SCH (08:40)
[2020-06-14] MEDS: BUDESONIDE NEBS 0.5 MG/2 ML INH NEB SCH (08:40)
[2020-06-14] MEDS ORDERED: predniSONE 20 MG TAB PO SCH (09:00)
[2020-06-14 15:05] VITALS: BP 122/76; TEMP 98.8; O2SAT 94
--- NOTE | 2020-06-21 14:46 | DS ---
SUPERVISING PHYSICIAN: Gerald Alfaro MD DISCHARGE DIAGNOSES: 1. COVID-19 pneumonitis.. 2. Chronic obstructive pulmonary disease with acute exacerbation secondary to #1 as well as community acquired pneumonia showing improvement with more aggressive treatment. 3. Sepsis secondary to #2 with slight increase in leukocytosis.. 4. Congestive heart failure likely diastolic with no signs of exacerbation. 5. Hyperkalemia, resolved. 6. Altered mental status secondary to #1 with underlying dementia. 7. Chronic atrial fibrillation with a controlled ventricular rate. 8. Chronic anxiety and depression with concerns for bipolar disorder. 9. Chronic tobacco abuse. 10. Anorexia. HISTORY OF PRESENT ILLNESS: This is an 80-year-old female patient who was seen at the [facility]. She tested positive for COVID. She has significant altered mental status and due to her Covid-19 she presented to the Emergency Room at [facility]. It is felt that she does have a unknown diagnosed bipolar disorder and according to the daughter, she does go through 3 to 4 days of insomnia every several months and becomes agitated, confused and has a change in mental status. Her oxygen saturation dropped to the mid 80s with any exertion on room air. She received Ativan in the Emergency Room. She was placed on the routine Covid medications including Remdesivir, azithromycin, Rocephin and Decadron in the Emergency Room. She did have an unknown allergy to Keflex and even though was given Rocephin, there were no adverse effects noted. She did receive some Benadryl. Vital signs in the Emergency Room were failry stable other than her respiratory rate was high at 24. She had a head CT that showed no acute intracranial abnormality. She was admitted to the hospital in stable condition. HOSPITAL COURSE: The patient was admitted to the hospital and continued on the Covid guidelines including the medications and testing. She was not continued on Rocephin as she have a remote allergy to Keflex. She had aggressive pulmonary hygiene. A Witt catheter was placed. She had judicious fluids and was also given some Haldol in addition to Ativan for her agitation and combativeness. She was unable to take her oral medications and she is on Eliquis so she was placed on Lovenox. There was discussion with the family about her code status. At the time of admission she was a full code at the patient's request, the daughter felt that she had a poor prognosis, she is 80 years old and she weighs about 75 to 80 pounds. Over the next several days she continued to be quite lethargic and woke up to a point where she was able to get her beta dc down. She continually was agitated and combative. She was then started on Seroquel and it was slowly titrated up. Her mental status did now change much until several days prior to discharge. It was discussed at length her code status and at that time time she did say she would be a No Code. She did have to have high flow oxygen at times as well as BiPAP due to her low 02 saturations. That was slowly titrated off and the family decided that she will be discharged to hospice and today she will be discharged to home with [facility] hospice care. LABORATORY: WBCs are elevated at 24.7 with hemoglobin stable at 10, hematocrit 31.8. Her D-dimer had come down to 253. Electrolytes are basically within normal limits except calcium low at 8.1. Urinalysis was unremarkable. Blood cultures showed no growth after 5 days. RADIOLOGY: Final chest x-ray showed mild interstitial opacities that had mostly resolved with a tiny left lower effusion. Oxygen saturation was 97% on 2 liters nasal cannula. DISCHARGE PLAN: The patient will be discharged home to in-home hospice care per [facility]. She is in fair condition. Her diet is to be as tolerated, activity as tolerated. She has a followup with a PA, Bill Engel, in one to two weeks. In addition to her routine medications, she is to continue on Levaquin, prednisone and Seroquel. She is to return to the hospital or followup with her primary care physician for any problems or complications. DISCHARGE MEDICATIONS: 1. Spironolactone. 2. Sodium chloride tablets. 3. Prednisone. 4. Lisinopril. 5. Duromeg. 7. Diltazem. 8. Buspirone. 9; Eliquis. 10. Nicotine patch. 11. Levaquin. 12. Prednisone. 13. Seroquel. [facility][id number] [facility]
== END 2020-06-14 12:00 | disposition hospice, home (50) | DRG 871 ==
LOC: ER 21:44 → MS 06-07 01:25 → OBSVTOIN 06-07 01:25
PROVIDERS: ADMIT Nurse Practitioner Acute Care; ATTEND Nurse Practitioner Acute Care
PROC: XW033E5 Introduction of Remdesivir Anti-infective into Peripheral Vein, Percutaneous Approach, New Technology Group 5 (ICD-10-PCS; principal; 2020-06-07)
DX: A41.89 Other specified sepsis (principal); U07.1 COVID-19; J12.89 Other viral pneumonia; N17.9 Acute kidney failure, unspecified; F03.91 Unspecified dementia, unspecified severity, with behavioral disturbance; I48.20 Chronic atrial fibrillation, unspecified; I50.32 Chronic diastolic (congestive) heart failure; J44.0 Chronic obstructive pulmonary disease with (acute) lower respiratory infection; J44.1 Chronic obstructive pulmonary disease with (acute) exacerbation; Z68.1 Body mass index [BMI] 19.9 or less, adult; R64 Cachexia; E87.2 Acidosis; E87.5 Hyperkalemia; F41.9 Anxiety disorder, unspecified; F31.9 Bipolar disorder, unspecified; F17.210 Nicotine dependence, cigarettes, uncomplicated; T38.0X5A Adverse effect of glucocorticoids and synthetic analogues, initial encounter; Z51.5 Encounter for palliative care; Z66 Do not resuscitate; Z79.01 Long term (current) use of anticoagulants; Z99.81 Dependence on supplemental oxygen; Z85.72 Personal history of non-Hodgkin lymphomas; Z88.1 Allergy status to other antibiotic agents; Z91.018 Allergy to other foods; Z79.52 Long term (current) use of systemic steroids